=== PATIENT | male | born 1940 | race Caucasian/White ===

== ENCOUNTER → 2018-10-14 | Outpatient (CLI) | payer OTHER | LOC: FIMAGING 10:03 | PROVIDERS: ATTEND Physician Assistant Surgical | DX: S13.140A Subluxation of C3/C4 cervical vertebrae, initial encounter (principal); S13.180A Subluxation of C7/T1 cervical vertebrae, initial encounter; M25.78 Osteophyte, vertebrae; Z98.1 Arthrodesis status ==